=== PATIENT | male | born 1955 | race Caucasian/White ===

== ENCOUNTER 2018-05-23 09:10 | Day surgery (SDC) | payer OTHER ==
[~2018-05-23] VITALS: Ht 180.3 cm; Wt 88.9 kg
[~2018-05-23 09:10] MED LIST: ASPI-1159 PO; AZOR PO; METF10004 PO; SITA1TBM7 PO; ZET10 PO; ZOLP10TA2 PO; [UNRECOGNIZED DRUG - CODE] PO
[2018-05-23] MEDS ORDERED: EMPA25TA PO (10:23)
[2018-05-23] MEDS ORDERED: LOSA1TAB37 PO (10:23)
[2018-05-23] MEDS ORDERED: CLOP75TA16 PO (10:23)
[2018-05-23] MEDS ORDERED: LIP40 PO (10:23)
[2018-05-23] MEDS ORDERED: TADA5TAB PO (10:28)
[2018-05-23] MEDS ORDERED: IODIXANOL 320MG/ML 100 ML BOTTLE IV ONE (10:54)
[2018-05-23] MEDS ORDERED: LIDOCAINE HCL 1% 10 MG/ML 10ML VIAL ONE (10:54)
[2018-05-23] MEDS ORDERED: IOHEXOL-300 100 ML BOTTLE ONE (10:55)
[2018-05-23] MEDS ORDERED: MIDAZOLAM HCL 2 MG/2 ML VIAL ONE ×2 (11:24→11:50)
[2018-05-23] MEDS ORDERED: FENTANYL CITRATE/PF 50MCG/ML 2ML VIAL ONE (11:24)
[2018-05-23] MEDS ORDERED: ACETAMINOPHEN 325MG TABLET PO PRN (12:30)
[2018-05-23] MEDS ORDERED: ONDANSETRON HCL 4MG/2ML INJ IV PRN (12:30)
[2018-05-23] MEDS ORDERED: HEPARIN SODIUM 1,000 UNIT/1ML VIAL IV ONE (14:23)
[2018-05-23] MEDS ORDERED: NITROGLYCERIN 50MCG/ML 10ML VIAL (CATH LAB) IV ONE (15:14)
[2018-05-23] MEDS ORDERED: NICARDIPINE 100MCG/ML 10ML VIAL (CATH LAB) IV ONE (15:14)
== END 2018-05-23 15:00 | disposition home or self-care (01) ==
LOC: CCL 09:10
PROVIDERS: ATTEND Specialist
DX: I25.10 Atherosclerotic heart disease of native coronary artery without angina pectoris (principal); I65.21 Occlusion and stenosis of right carotid artery; I25.5 Ischemic cardiomyopathy; E78.5 Hyperlipidemia, unspecified; E11.9 Type 2 diabetes mellitus without complications; I11.0 Hypertensive heart disease with heart failure; I50.9 Heart failure, unspecified; E66.9 Obesity, unspecified; Z68.28 Body mass index [BMI] 28.0-28.9, adult; Z79.899 Other long term (current) drug therapy; Z88.0 Allergy status to penicillin; Z87.891 Personal history of nicotine dependence; Z79.82 Long term (current) use of aspirin; Z79.84 Long term (current) use of oral hypoglycemic drugs
CPT/HCPCS: 93458; 99152; C1769; C1887; C1893; J1644; J2250; J3010; J3490; Q9967

== ENCOUNTER 2019-03-12 06:48 | Day surgery (SDC) | payer OTHER ==
[~2019-03-12] VITALS: Ht 177.8 cm; Wt 85.7 kg
[~2019-03-12 06:48] MED LIST changes: -ASPI-1159 PO; +ASPI-1393 PO; -AZOR PO; +CLOP75TA4 PO; +EMPA25TA PO; +LIP40 PO; +LOSA1TAB37 PO; +METF-416 PO; -METF10004 PO; -SITA1TBM7 PO; +TADA5TAB PO; -ZET10 PO
[2019-03-12] MEDS ORDERED: MIDAZOLAM HCL 2 MG/2 ML VIAL ONE ×2 (08:15→08:55)
[2019-03-12] MEDS ORDERED: FENTANYL CITRATE/PF 50MCG/ML 2ML VIAL ONE (08:16)
[2019-03-12] MEDS ORDERED: IODIXANOL 320MG/ML 100 ML BOTTLE IV ONE ×2 (08:32→08:36)
[2019-03-12] MEDS ORDERED: LIDOCAINE HCL 1% 20ML VIAL (Pyxis) INJ ONE (08:32)
[2019-03-12] MEDS ORDERED: COR6 PO (09:03)
[2019-03-12] MEDS ORDERED: DAPA10TA PO (09:03)
[2019-03-12] MEDS ORDERED: RIVA10TA PO (09:03)
[2019-03-12] MEDS ORDERED: SACU1TAB PO (09:03)
[2019-03-12] MEDS ORDERED: TAMS-11 PO (09:03)
[2019-03-12] MEDS ORDERED: ASPIRIN 325MG EC TABLET PO ONE (09:51)
[2019-03-12] MEDS ORDERED: ATROPINE SULFATE 1MG/10ML SYR IV PRN (10:00)
[2019-03-12] MEDS ORDERED: ONDANSETRON HCL 4MG/2ML INJ IV PRN (10:00)
[2019-03-12] MEDS ORDERED: ACETAMINOPHEN 325MG TABLET PO PRN (10:00)
[2019-03-12] MEDS ORDERED: NITROGLYCERIN 50MCG/ML 10ML VIAL (CATH LAB) IV ONE (15:19)
[2019-03-12] MEDS ORDERED: HEPARIN SODIUM 1,000 UNIT/1ML VIAL IV ONE (15:19)
== END 2019-03-12 15:45 | disposition home or self-care (01) ==
LOC: CCL 06:48
PROVIDERS: ATTEND Specialist
DX: I70.211 Atherosclerosis of native arteries of extremities with intermittent claudication, right leg (principal); E11.51 Type 2 diabetes mellitus with diabetic peripheral angiopathy without gangrene; E78.5 Hyperlipidemia, unspecified; I47.1 Supraventricular tachycardia; I44.7 Left bundle-branch block, unspecified; I11.0 Hypertensive heart disease with heart failure; I50.32 Chronic diastolic (congestive) heart failure; I25.10 Atherosclerotic heart disease of native coronary artery without angina pectoris; I25.5 Ischemic cardiomyopathy; I49.3 Ventricular premature depolarization; N40.0 Benign prostatic hyperplasia without lower urinary tract symptoms; Z88.0 Allergy status to penicillin; Z79.899 Other long term (current) drug therapy; Z79.82 Long term (current) use of aspirin; Z79.84 Long term (current) use of oral hypoglycemic drugs; Z95.1 Presence of aortocoronary bypass graft; Z90.49 Acquired absence of other specified parts of digestive tract
CPT/HCPCS: 37225; 75710; 85347; 99152; 99153; C1724; C1725; C1760; C1769; C1887; C1893; C1894; J1644; J2250; J3010; J3490; Q9967; G0500

== ENCOUNTER → 2020-07-26 | Outpatient (CLI) | payer OTHER, MEDICARE ==
[~2020-07-26] MED LIST changes: -ASPI-1393 PO; +ASPI-1497 PO; -CLOP75TA4 PO; +COR6 PO; +DAPA10TA PO; -EMPA25TA PO; -LOSA1TAB37 PO; +RIVA10TA PO; +SACU1TAB PO; +TAMS-11 PO; -[UNRECOGNIZED DRUG - CODE] PO
[2020-07-26 10:29] LABS: BASOPHILS % 0.5 % (0.0-2.0); EOSINOPHILS % 1.8 % (0.0-5.0); HEMATOCRIT. 43.6 % (42.0-52.0); HEMOGLOBIN. 14.6 g/dL (14.0-18.0); MEAN CORPUSCULAR HEMOGLOBIN 28.4 pg (28.0-32.0); MEAN CORPUSCULAR VOLUME 85.2 fL (80.0-94.0); MEAN PLATELET VOLUME 8.9 fl (7.4-10.4); MONOCYTES % 8.7 % (2.0-8.0); PLATELET 242 x1000/uL (130-400); RED BLOOD CELL COUNT 5.12 mill/uL (4.7-6.1); RED CELL DISTRIBUTION WIDTH 15.4 % (11.6-14.6)
[2020-07-26 10:37] LABS: INR 1.1; PARTIAL THROMBOPLASTIN TIME 29.1 sec (23.4-31.0); PROTHROMBIN TIME 11.4 sec (9.6-11.0)
[2020-07-26 10:42] LABS: CHLORIDE 103 mEq/L (98-107)
== END | disposition home or self-care (01) ==
LOC: LAB 09:42
PROVIDERS: ATTEND Specialist
DX: I11.9 Hypertensive heart disease without heart failure (principal); E79.9 Disorder of purine and pyrimidine metabolism, unspecified
CPT/HCPCS: 36415; 80053; 85025; 87426

== ENCOUNTER 2020-07-27 10:44 | Inpatient (IN) | payer OTHER, MEDICARE ==
[~2020-07-27] VITALS: Ht 177.8 cm; Wt 95.8 kg
[2020-07-27] VITALS (10 sets, daily range): BP systolic 124–149; BP diastolic 80–93
[2020-07-27] MEDS ORDERED: LIDOCAINE HCL 1% 20ML VIAL (Pyxis) INJ ONE (12:21)
[2020-07-27] MEDS ORDERED: IOHEXOL-300 100 ML BOTTLE ONE (12:21)
[2020-07-27] MEDS ORDERED: GENTAMICIN SULF 40MG/ML 2ML VIAL ONE (12:22)
[2020-07-27] MEDS ORDERED: GENTAMICIN/NS IRRIGATION 500 ML IR ONE (12:22)
[2020-07-27] MEDS ORDERED: MIDAZOLAM HCL 2 MG/2 ML VIAL ONE (12:26)
[2020-07-27] MEDS ORDERED: PROPOFOL 200MG/20ML VIAL IV ONE (12:26)
[2020-07-27] MEDS ORDERED: FENTANYL CITRATE/PF 50MCG/ML 2ML VIAL ONE (12:26)
[2020-07-27] MEDS ORDERED: ONDANSETRON HCL 4MG/2ML INJ ONE (12:27)
[2020-07-27] MEDS ORDERED: DEXAMETHASONE 4MG/ML 1ML VIAL ONE (12:27)
[2020-07-27] MEDS ORDERED: VANCOMYCIN 1 G PREMIX 200 ML IV NR (12:30)
[2020-07-27] MEDS ORDERED: HYDROMORPHONE HCL/PF 2MG/ML CPJ IV PRN ×2 (14:30→18:30)
[2020-07-27] MEDS ORDERED: MEPERIDINE HCL/PF 25MG/ML CPJ IV PRN ×2 (14:30→18:30)
[2020-07-27] MEDS ORDERED: LABETALOL 5MG/ML SYR 20 MG/4 ML SYRINGE IV PRN ×2 (14:30→18:30)
[2020-07-27] MEDS ORDERED: ONDANSETRON HCL 4MG/2ML INJ IV PRN ×2 (14:30→18:30)
[2020-07-27] MEDS ORDERED: HYDROCODONE/ACETAMINOPHEN 5/325MG TABLET PO PRN (17:18)
[2020-07-27] MEDS ORDERED: ATORVASTATIN CALCIUM 40MG TABLET PO SCH (21:00)
[2020-07-28] VITALS (7 sets, daily range): BP systolic 131–141; BP diastolic 59–88
[2020-07-28 07:03] LABS: BASOPHILS % 0.1 % (0.0-2.0); HEMATOCRIT. 42.7 % (42.0-52.0); HEMOGLOBIN. 14.1 g/dL (14.0-18.0); LYMPHOCYTES % 7.9 % (20.0-50.0); MEAN CORPUSCULAR HEMOGLOBIN 27.9 pg (28.0-32.0); MEAN CORPUSCULAR VOLUME 84.4 fL (80.0-94.0); MEAN PLATELET VOLUME 9.2 fl (7.4-10.4); MONOCYTES % 8.5 % (2.0-8.0); NEUTROPHILS % 83.5 % (40.0-76.0); PLATELET 230 x1000/uL (130-400); RED BLOOD CELL COUNT 5.05 mill/uL (4.7-6.1); RED CELL DISTRIBUTION WIDTH 15.3 % (11.6-14.6)
[2020-07-28 07:44] LABS: CHLORIDE 103 mEq/L (98-107)
[2020-07-28] MEDS ORDERED: ASPIRIN 81MG EC TABLET PO SCH (09:00)
[2020-07-28] MEDS ORDERED: CLINDAMYCIN HCL 150MG CAPSULE PO SCH (09:00)
[2020-07-28] MEDS ORDERED: CARVEDILOL 6.25 MG TABLET PO SCH (09:00)
[2020-07-28] MEDS ORDERED: RIVAROXABAN 10 MG TABLET PO SCH (09:00)
[2020-07-28] MEDS ORDERED: TAMSULOSIN HCL 0.4MG SR CAPSULE PO SCH (09:00)
== END 2020-07-28 10:05 | disposition home or self-care (01) | DRG 225 ==
LOC: CCL 10:44 → 3WST 18:56
PROVIDERS: ADMIT Internal Medicine Clinical Cardiac Electrophysiology; ATTEND Internal Medicine Clinical Cardiac Electrophysiology
PROC: 4A023N6 Measurement of Cardiac Sampling and Pressure, Right Heart, Percutaneous Approach (ICD-10-PCS; principal; 2020-07-28)
PROC: 0JH639Z Insertion of Cardiac Resynchronization Defibrillator Pulse Generator into Chest Subcutaneous Tissue and Fascia, Percutaneous Approach (ICD-10-PCS; 2020-07-28)
PROC: 02HK3KZ Insertion of Defibrillator Lead into Right Ventricle, Percutaneous Approach (ICD-10-PCS; 2020-07-28)
PROC: 02H63KZ Insertion of Defibrillator Lead into Right Atrium, Percutaneous Approach (ICD-10-PCS; 2020-07-28)
PROC: B5171ZZ Fluoroscopy of Left Subclavian Vein using Low Osmolar Contrast (ICD-10-PCS; 2020-07-28)
PROC: 4B02XTZ Measurement of Cardiac Defibrillator, External Approach (ICD-10-PCS; 2020-07-28)
DX: I25.10 Atherosclerotic heart disease of native coronary artery without angina pectoris (principal); I45.2 Bifascicular block; I47.2 Ventricular tachycardia; I50.22 Chronic systolic (congestive) heart failure; D68.69 Other thrombophilia; E11.9 Type 2 diabetes mellitus without complications; E78.5 Hyperlipidemia, unspecified; I11.0 Hypertensive heart disease with heart failure; I25.5 Ischemic cardiomyopathy; Z77.22 Contact with and (suspected) exposure to environmental tobacco smoke (acute) (chronic); I34.0 Nonrheumatic mitral (valve) insufficiency; L50.9 Urticaria, unspecified; Z68.28 Body mass index [BMI] 28.0-28.9, adult; Z79.01 Long term (current) use of anticoagulants; Z95.1 Presence of aortocoronary bypass graft; Z88.0 Allergy status to penicillin; Z79.899 Other long term (current) drug therapy; Z82.3 Family history of stroke; Z82.49 Family history of ischemic heart disease and other diseases of the circulatory system; Z90.49 Acquired absence of other specified parts of digestive tract
CPT/HCPCS: 33225; 33249; 36415; 71045; 75820; 80048; 85025; 93005; 93451; 93641; C1769; C1882; C1887; C1893; C1898; C1899; C1900; J1100; J1580; J1644; J2250; J2405; J2704; J3010; J3370; J3490; J7040; Q9967